=== PATIENT | female | born 1985 | race Caucasian/White ===

== ENCOUNTER 2020-08-31 06:42 | Inpatient (IN) | payer BC ==
[~2020-08-31] VITALS: Ht 162.6 cm; Wt 76.8 kg
[2020-08-31] VITALS (16 sets, daily range): BP systolic 99–139; BP diastolic 57–76; PULSE 65–86; TEMP 98.1–98.2
[~2020-08-31 06:42] MED LIST: MOTRIN 600600 MG/TAB PO; PERCOCET 325 MG1 TA2 PO; PRENATAL VITAMI1 TA3 PO
[2020-08-31] MEDS ORDERED: MAGNESIUM200 MG PO (07:23)
[2020-08-31 08:18] LABS: HEMOGLOBIN 11.9 g/dl (12.5-16.0); MEAN CELL VOLUME 91 fl (80.0-100.0); MEAN CORPUSCULAR HEMOGLOBIN 31 pg (27.0-31.0); MEAN CORPUSCULAR HGB CONC 34 g/dl (33.0-37.0); MEAN PLATELET VOLUME 9.6 fl (7.4-10.4); PLATELET COUNT 242 K/mm3 (130-400); RED BLOOD COUNT 3.86 M/mm3 (4.10-5.30); REDCELL DISTRIBUTION WIDTH-CV 12.6 % (11.5-14.5)
[2020-08-31 08:38] LABS: HEMATOCRIT 35.2 % (37.0-47.0)
--- NOTE | 2020-08-31 08:42 | NUR ---
0568 PATIENT HERE FROM HOME, WITH COMPLAINTS OF LARGE GUSH OF CLEAR FLUID THIS MORNING AROUND 6. SVE /-1 LARGE AMOUNT OF CLEAR FLUID WITH EXAM. EFM ON FHT 130 GOOD ACCELERATIONS NOTED. BABY VERY ACTIVE. PLAN GIVEN AND REVIEWED WITH PATIENT AND . COPY GIVEN TO NURSERY. DR STERLING CALLED AND UPDATED. ORDERS GIVEN TO ADMIT AT THIS TIME. HEPLOCK IN LEFT HAND AND BLOOD WORK DRAWN AND SENT TO LAB
[2020-08-31 08:48] LABS: LYMPHOCYTE 20 % (20.0-51.0); METAMYELOCYTE 2 % (0-0); MYELOCYTE 4 % (0-0); NEUTROPHILS 68 % (42.0-75.2); PLATELET ESTIMATE NORMAL (NORMAL)
--- NOTE | 2020-08-31 09:54 | NUR ---
CONTRACTIONS GETTING STRONGER.
--- NOTE | 2020-08-31 09:58 | NUR ---
0800 PATIENT OFF MONITOR AND SITTING ON BIRTHING BALL PER REQUEST.
--- NOTE | 2020-08-31 10:03 | NUR ---
0900 PATIENT BACK TO BED AND EFM ON FHT 130. PATIENT STATES CONTRACTIONS GETTING ALOT STRONGER AND WANTS ME TO CHECK HER. SVE 7/100/0. DR STERLING CALLED AND UPDATED ON ALL ABOVE INFORMATION. WILL HEAD TO HOSPITAL SOON. 09 PATIENT FEELING INTENSE PRESSURE. SVE COMPLETE AND +2. FHT 130. ENCOURAGE PATIENT TO BREATH THROUGH EACH CONTRACTION. DR STERLING CALLED AGAIN, AND IS ON WAY. 917 BABY GIRL BORN VIA BY THIS NURSE, CORD CLAMPED AND CUT, TO MOMS CHEST. N JOHNATHAN AT BEDSIDE FOR BABY. MOM TOLERATES ALL WELL. STRONG CRY AND PINK COLOR NOTED TO BABY. 919 DR STERLING AT BEDSIDE. BED BROKE DOWN FOR PLACENTA DELIVER AND PERINEAN INSPECTION. 928 PLACENTA DELIVERED AT THIS TIME BY DR STERLING AND PITOCIN STARTED AT 333 PROTOCOL. FUNDUS FIRM AND MODERATE AMOUNT OF BLEEDING NOTED.
[2020-09-01 04:37] VITALS: BP 105/65; PULSE 83; TEMP 97.8
[2020-09-01 07:43] VITALS: BP 96/58; PULSE 80; TEMP 97.8
--- NOTE | 2020-09-01 09:09 | NUR ---
Initial visit; Parents thanked Physician Office Rep for offering congratulations and God's blessings for the of their daughter. Physician Office Rep thanked family for choosing [facility].
[2020-09-01] MEDS ORDERED: MOTRIN 600600 MG/TAB PO (10:21)
== END 2020-09-01 11:20 | disposition home or self-care (01) | DRG 807 ==
LOC: LDRO 06:42 → LDR 07:26 → OB 11:19
PROVIDERS: ADMIT Obstetrics & Gynecology
PROC: 10E0XZZ Delivery of Products of Conception, External Approach (ICD-10-PCS; principal; 2020-08-31)
PROC: 3E033VJ Introduction of Other Hormone into Peripheral Vein, Percutaneous Approach (ICD-10-PCS; 2020-08-31)
DX: O48.0 Post-term pregnancy (principal); Z37.0 Single live birth; Z3A.40 40 weeks gestation of pregnancy
CPT/HCPCS: J2590; J7120